=== PATIENT | male | born 1950 | race Caucasian/White ===

== ENCOUNTER 2019-10-30 22:52 | Emergency (ER) | payer MEDICARE ==
--- NOTE | 2019-10-31 01:14 | ER Document Report ---
ED Medical Screen (RME) - General Chief Complaint: Lower Abdominal Pain Stated Complaint: LOWER ABDOMINAL PAIN Time Seen by Provider: 10/31/19 01:08 Mode of Arrival: Wheelchair Information source: Patient Notes: 69-year-old male presented to ED for lower abdominal pain. He states he is having some problems urinating the stream is very small. He states that the urine has become much worse since Friday. He states he knows he has a large prostate but he is having a hard time urinating. He states when he does urinate it improves the pain. Patient is alert oriented he does have active bowel sounds at this time. I have greeted and performed a rapid initial assessment of this patient. A comprehensive ED assessment and evaluation of the patient, analysis of test results and completion of medical decision making process will be conducted by an additional ED providers. - Related Data Allergies/Adverse Reactions: No Known Allergies Allergy (Unverified 10/31/19 01:12) Physical Exam - Vital signs Vitals: Temp Pulse Resp BP Pulse Ox 97.6 F 88 26 H 202/93 H 98 10/30/19 23:00 10/30/19 23:00 10/30/19 23:00 10/30/19 23:00 10/30/19 23:00 Course - Vital Signs Vital signs: Temp Pulse Resp BP Pulse Ox 97.4 F 76 26 H 154/68 H 100 10/31/19 00:42 10/31/19 00:42 10/30/19 23:00 10/31/19 00:42 10/31/19 00:42
[2019-10-31 02:15] LABS: EOSINOPHILS % (AUTO) 0.1 % (0-6); LYMPHOCYTES % (AUTO) 8.7 % (13-45); TOTAL CELLS COUNTED % (AUTO) 100 %
[2019-10-31 02:26] LABS: ABSOLUTE NEUT (AUTO) 9.2 10^3/uL (1.7-8.2); BASOPHILS % (AUTO) 0.3 % (0-2); HEMATOCRIT 44.6 % (36.0-47.0); HEMOGLOBIN 15.5 g/dL (12.0-15.5); MEAN CORPUSCULAR HEMOGLOBIN 33.6 pg (27.0-33.4); MEAN CORPUSCULAR HGB CONC 34.6 g/dL (32.0-36.0); MEAN CORPUSCULAR VOLUME 97 fl (80-97); MONOCYTES % (AUTO) 9.1 % (3-13); PLATELET COUNT 235 10^3/uL (150-450); RED CELL DISTRIBUTION WIDTH 12.1 % (11.5-14.0); SEGMENTED NEUTROPHILS % (AUTO) 81.8 % (42-78); WHITE BLOOD COUNT 11.2 10^3/uL (4.0-10.5)
[2019-10-31 02:28] LABS: ALBUMIN 4.3 g/dL (3.5-5.0); ALKALINE PHOSPHATASE 80 U/L (38-126); ANION GAP 18 (5-19); ASPARTATE AMINO TRANSFERASE 36 U/L (14-36); BILIRUBIN,DIRECT 0.3 mg/dL (0.0-0.4); BILIRUBIN,TOTAL 0.8 mg/dL (0.2-1.3); BLOOD UREA NITROGEN 24 mg/dL (7-20); CALCIUM 9.9 mg/dL (8.4-10.2); CARBON DIOXIDE 21 mmol/L (22-30); CHLORIDE 97 mmol/L (98-107); POTASSIUM 4.4 mmol/L (3.6-5.0); TOTAL PROTEIN 7.5 g/dL (6.3-8.2)
[2019-10-31 02:52] LABS: GLUCOSE 551 mg/dL (75-110)
[2019-10-31 02:53] LABS: APPEARANCE,URINE CLEAR; BILIRUBIN,URINE NEGATIVE (NEGATIVE); COLOR,URINE YELLOW; GLUCOSE, URINE >=500 mg/dL (NEGATIVE); KETONES,URINE NEGATIVE (NEGATIVE); PROTEIN,URINE NEGATIVE (NEGATIVE); URINE SPECIFIC GRAVITY 1.022; UROBILINOGEN,URINE NEGATIVE mg/dL (<2.0)
[2019-10-31] MEDS ORDERED: TAMSULOSIN HCL 0.4 MG CAP.SR.24H PO ONE (06:48)
[2019-10-31] MEDS ORDERED: NORMAL SALINE 1000 ML 1,000 ML IV ONE (06:54)
--- NOTE | 2019-10-31 06:57 | ER Document Report ---
ED General - General Chief Complaint: Abdominal Pain Stated Complaint: LOWER ABDOMINAL PAIN Time Seen by Provider: 10/31/19 01:08 Mode of Arrival: Wheelchair TRAVEL OUTSIDE OF THE [place] IN LAST 30 DAYS: No - HPI Notes: Patient is a 69-year-old male who presents to the emergency department for evaluation. He states that he has had difficulty urinating, it became more significant last 3 days. He states is been going on for some time, but he was unable to empty his bladder, so he presented to the ED. Denies any fevers or chills. No nausea or vomiting. He states he had some diarrhea last week but that has resolved. He does note that he has been excessively thirsty, compl ained of a dry mouth, and felt like he had to try to urinate more often. Patient admits he has not seen a doctor in over 10 years, and states that at that point it was just for diagnosis of influenza. - Related Data Allergies/Adverse Reactions: No Known Allergies Allergy (Unverified 10/31/19 01:12) Home Medications: Vitamin supplements Past Medical History - General Information source: Patient - Social History Smoking Status: Former Smoker Chew tobacco use (# tins/day): No Frequency of alcohol use: None Drug Abuse: None Family History: DM, Hypertension Patient has suicidal ideation: No Patient has homicidal ideation: No Review of Systems - Review of Systems Constitutional: No symptoms reported EENT: No symptoms reported Cardiovascular: No symptoms reported Respiratory: No symptoms reported Gastrointestinal: See HPI Genitourinary: See HPI Musculoskeletal: No symptoms reported Skin: No symptoms reported Neurological/Psychological: No symptoms reported Physical Exam - Vital signs Vitals: Temp Pulse Resp BP Pulse Ox 97.6 F 88 26 H 202/93 H 98 10/30/19 23:00 10/30/19 23:00 10/30/19 23:00 10/30/19 23:00 10/30/19 23:00 - Notes Notes: This is a 69-year-old male, lying comfortably in the bed, Call catheter in place draining denise urine with noted sediment. Vital signs reviewed, please refer to chart. Head is normocephalic, atraumatic. Pupils equal round, reactive to light. Oral mucosa slightly dry. Neck is supple without meningismus. Heart is regular rate and rhythm. Lungs are clear to auscultation bilaterally. Abdomen is soft, nontender, normoactive bowel sounds throughout. Extremities without cyanosis, clubbing. Posterior calves are nontender. Peripheral pulses are equal. Skin is warm and dry. Patient is awake, alert, neurological exam is nonfocal. Course - Re-evaluation Re-evalutation: 10/31/19 06:55 Patient is a 69-year-old male who presents to the emergency department for evaluation. He does not have a primary care doctor. He has not seen one in some time. He did have significant urinary retention. Coud catheter had to be placed to be able to pass his enlarged prostate. Initially, over 1700 cc of urine were drained from this patient's bladder, despite bladder scan grossly underestimating it. Patient feels significantly improved. Since then he has h ad another 300 cc of urine drained. Urinalysis and culture were sent. Laboratory investigations were obtained, showed an elevated creatinine. I am unsure as to his baseline. His blood glucose was also found to be over 500. Patient is given IV fluids. Will perform a repeat Accu-Chek to ensure current glucose, will treat with insulin. He is not showing any significant signs of acidosis. Renal ultrasound ordered to evaluate for hydronephrosis secondary to outflow obstruction. We will continue to monitor. 10/31/19 10:01 Patient's blood sugar is coming down slowly. On further questioning, it turns out that his is in fact a diabetic, will be able to help him with dietary changes, medications. She already sees a nurse practitioner in [place]. At this point, I will go and start the patient on metformin, glipizide, Flomax. The importance of close follow-up in regards to his diabetes was stressed. I will give him the name of the discharge medical doctor, as well as other primary care providers in the region. We will also give him information in regards to outpatient urology follow-up. He will be given information on Call catheter care. Work-up, findings, and expected follow-up were discussed at great length with both the patient and his . They voiced understanding and are comfortable with plan of care. - Vital Signs Vital signs: Temp Pulse Resp BP Pulse Ox 98.5 F 70 14 118/65 97 10/31/19 10:06 10/31/19 10:06 10/31/19 10:06 10/31/19 10:06 10/31/19 10:06 - Laboratory Result Diagrams: 10/31/19 02:00 10/31/19 02:00 Laboratory results interpreted by me: 10/30/19 10/31/19 10/31/19 23:20 02:00 02:00 WBC 11.2 H MCH 33.6 H Lymph % (Auto) 8.7 L Absolute Neuts (auto) 9.2 H Seg Neutrophils % 81.8 H Sodium 135.8 L Chloride 97 L Carbon Dioxide 21 L BUN 24 H Creatinine 1.92 H Est GFR ( Amer) 31 L Est GFR (MDRD) Non-Af 26 L Glucose 551 H* POC Glucose Urine Glucose (UA) >=500 H Leukocyte Esterase Rfl TRACE H 10/31/19 09:11 WBC MCH Lymph % (Auto) Absolute Neuts (auto) Seg Neutrophils % Sodium Chloride Carbon Dioxide BUN Creatinine Est GFR ( Amer) Est GFR (MDRD) Non-Af Glucose POC Glucose 350 H Urine Glucose (UA) Leukocyte Esterase Rfl - Diagnostic Test Radiology reviewed: Reports reviewed Radiology results interpreted by me: 10/31/19 10:07 Renal Ultrasound 10/31/19 06:53 IMPRESSION: NORMAL RENAL AND BLADDER ULTRASOUND. Discharge - Discharge Clinical Impression: Urinary retention, Enlarged prostate, Abnormal renal function finding Type 2 diabetes mellitus Qualifiers: Diabetes mellitus long term care phlebotomist insulin use: without skilled nursing use Chronic kidney disease stage: unspecified stage Condition: Stable Disposition: HOME, SELF-CARE Instructions: Diabetes (OM), Call Catheter Care (OM), Urinary Retention (OM) Additional Instructions: Please take medications as prescribed. Call catheter care as discussed in paperwork. You need to follow-up closely with primary care as well as urology. If you develop dizziness, fevers, vomiting, decreased urine output, or any other new or concerning symptoms, please return immediately to the emergency department for reevaluation. YOU MUST FOLLOW-UP WITH A PRIMARY CARE DOCTOR CRISTIAN (24-48 hours). You have diabetes and will need long term care phlebotomist management of your blood sugar levels. The most important step is dietary changes. You need to avoid foods/drinks high in sugar and simple carbohydrates. Avoid sugared sodas, sweet tea, sugared coffee, white starch products (potatoes, pastas, rices, breads). You are being started on a medication today called metformin. This often causes abdominal cramping, nausea, and diarrhea in the first weeks of use. These symptoms do stop generally after 3-4 weeks. Please do not stop this medication due to these expected side effects. Please return to the ED immediately if you pass out, become confused, have persistent vomiting, or you have any new or worsening symptoms. Urology follow-up physicians listed below: [email or web address] [email or web address] [address] [facility] [address], [place] Prescriptions: Tamsulosin HCl [Flomax 0.4 mg Cap.sr] 0.4 mg PO DAILY #7 cap.sr.24h Metformin HCl [Glucophage 500 mg Tablet] 500 mg PO BID #60 tablet Glipizide [Glucotrol 5 mg Tablet] 5 mg PO DAILY #30 tablet Referrals: SAMMIE BOCANEGRA DO [NO LOCAL MD] - Follow up as needed GI SORIA MD [ACTIVE STAFF] - Follow up as needed
[2019-10-31] MEDS ORDERED: INSULIN REG, HUMAN 100 UNIT/ML 3 ML VIAL (PYX) IV ONE (06:59)
[2019-10-31] MEDS ORDERED: INSULIN REG, HUMAN 100 UNIT/ML 3 ML VIAL (PYX) SUBCUT ONE (07:52)
--- NOTE | 2019-10-31 08:20 | RADIOLOGY REPORT (SQ) ---
EXAM DESCRIPTION: U/S RETROPERITON LTD COMPLETED DATE/TIME: 10/31/2019 7:41 am REASON FOR STUDY: urinary retention, eval for hydro COMPARISON: None. TECHNIQUE: Dynamic and static grayscale images acquired of the kidneys and bladder and recorded on P ACS. Additional selected color Doppler and spectral images recorded. LIMITATIONS: None. FINDINGS: RIGHT KIDNEY: Normal size. Normal echogenicity. No solid or suspicious masses. No hydronep hrosis. No calcifications. LEFT KIDNEY: Normal size. Normal echogenicity. No solid or suspicious masses. No hydronephrosis. No calcifications. BLADDER: No masses. OTHER FINDINGS: No other significant finding. IMPRESSION: NORMAL RENAL AND BLADDER ULTRASOUND. TECHNICAL DOCUMENTATION: JOB ID: [id number] [employer]- All Rights Reserved Reading location - IP/workstation name: [email or web address]
[2019-10-31] MEDS ORDERED: GLIPIZIDE 5 MG TABLET PO ONE (09:42)
[2019-10-31] MEDS ORDERED: METFORMIN HCL 500 MG TABLET PO ONE (09:42)
[2019-10-31 11:01] VITALS: BP 116/73
== END 2019-10-31 11:19 | disposition home or self-care (01) ==
LOC: ER 22:52 → EDSEX 22:52 → ER 10-31 11:19
DX: E11.22 Type 2 diabetes mellitus with diabetic chronic kidney disease (principal); N18.9 Chronic kidney disease, unspecified; R33.9 Retention of urine, unspecified; N40.0 Benign prostatic hyperplasia without lower urinary tract symptoms; R94.4 Abnormal results of kidney function studies; R10.30 Lower abdominal pain, unspecified; Z87.891 Personal history of nicotine dependence
CPT/HCPCS: 99284; 96360; 51701; 51702; 36415; 87086; 82962; 85025; 80053; 81001; 76775; C1758; A9270 ×4; J7030; J1815